=== PATIENT | female | born 1995 ===

== ENCOUNTER → 2017-10-30 | Outpatient (CLI) | payer SELFPAY ==
[~2017-10-30] MED LIST: IOHEXOL 350 MG/ML 100 ML (OMNIPAQUE 350) VIAL IV ONE; NS 250 ML (IVPB) BAG IV ONE
--- NOTE | 2017-10-30 14:25 | Diagnostic Imaging Report ---
PROCEDURE: CT chest with and without contrast. TECHNIQUE: Multiple contiguous axial images were obtained through the chest before and after administration of intravenous contrast. DATE: October 30, 2017. COMPARISON: None. INDICATION: 22-year-old female, cough and hemoptysis. FINDINGS: There is a noncalcified right upper lobe pulmonary nodule measuring 10 mm in size on axial image 23. There is airspace consolidation within the posterior aspect of the right upper lobe. There is tree-in-bud nodularity additionally noted within the right middle lobe and right upper lobe. There is no identified pneumothorax. There is no pleural effusion. The heart is not enlarged. There is no identified central or segmental pulmonary embolus. There is limited evaluation for subsegmental pulmonary emboli given the timing of contrast bolus. The main pulmonary artery is normal in caliber. The heart is not enlarged. There is no pericardial effusion. There is no identified abnormally enlarged mediastinal, hilar, or axillary lymph node which meets CT size criteria for adenopathy. Limited evaluation of the visualized portions of the upper abdomen is unremarkable. There is no identified acute bony abnormality. IMPRESSION: CT CHEST: 1. Nonspecific airspace consolidation in the posterior aspect of the right upper lobe with tree-in-bud nodularity in the right middle lobe and right upper lobe. There is also a noncalcified 10 mm pulmonary nodule. The tree-in-bud nodularity suggests process spreading via endobronchial means which is most typically an infectious bronchiolitis or possibly aspiration. All of the findings potentially could be post infectious related although this is not specific, especially for the 10 mm right upper lobe pulmonary nodule. Recommend correlation clinically and at minimum short-term follow-up CT for the pulmonary nodule. Stat faxed to LYNDSAY Carmona at 2:21 p.m. by arvind Dictated by: Dictated on workstation # [id number]
== END ==
LOC: RAD 12:55
PROVIDERS: ATTEND Physician Assistant
DX: J18.1 Lobar pneumonia, unspecified organism (principal); R91.8 Other nonspecific abnormal finding of lung field
CPT/HCPCS: 71270

== ENCOUNTER 2022-11-17 19:50 | Emergency (ER) | payer SELFPAY ==
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
[2022-11-17] MEDS ORDERED: IBUPROFEN 600 MG TABLET PO ONE (20:15)
--- NOTE | 2022-11-17 20:33 | Diagnostic Imaging Report ---
PROCEDURE: CT head and CT cervical spine without contrast. TECHNIQUE: Multiple contiguous axial images were obtained through the brain and cervical spine without the use of intravenous contrast. Sagittal and coronal reformations through the cervical spine were then performed. Auto Exposure Controls were utilized during the CT exam to meet ALARA standards for radiation dose reduction. INDICATION: Memory loss and neck pain. Trauma COMPARISON: None available. FINDINGS: Head: No hyperdense hemorrhage or space-occupying mass. No hydrocephalus or midline shift. No evidence of territorial infarct. Basilar cisterns are patent. No focal scalp swelling. No skull fracture. The paranasal sinuses and mastoid air cells are clear. Cervical spine: No acute fracture or traumatic malalignment. No high-grade spinal canal narrowing. Airway is patent. No cervical lymphadenopathy. Visualized thyroid is normal. IMPRESSION: 1. No acute intracranial process or skull fracture. 2. No acute fracture or traumatic malalignment of the cervical spine. Dictated by: Dictated on workstation # [id number]
[2022-11-17 20:49] VITALS: BP 119/84
== END 2022-11-17 20:50 | disposition home or self-care (01) ==
LOC: EDUNIT# 19:50 → EDBD 19:52 → ER 19:52
DX: S06.0X0A Concussion without loss of consciousness, initial encounter (principal); W18.30XA Fall on same level, unspecified, initial encounter; W22.8XXA Striking against or struck by other objects, initial encounter; Y93.66 Activity, soccer
CPT/HCPCS: 70450; 72125